=== PATIENT | female | born 1960 | race African-American/Black ===

== ENCOUNTER 2019-03-28 00:25 | Emergency (ER) | payer OTHER ==
[~2019-03-28] VITALS: Ht 165.1 cm; Wt 90.0 kg
[2019-03-28] MEDS ORDERED: KETOROLAC 30MG/ML VIAL IM ONE (03:45)
[2019-03-28 03:49] LABS: CLARITY URINE CLEAR (CLEAR); COLOR URINE YELLOW (YELLOW); KETONES URINE NEGATIVE (NEGATIVE); LEUKOCYTE ESTERASE URINE NEGATIVE (NEGATIVE); NITRITE URINE NEGATIVE (NEGATIVE); OCCULT BLOOD URINE TRACE (NEGATIVE); PH URINE 5.5 (4.5-8.0); PROTEIN URINE NEGATIVE (NEGATIVE); SPECIFIC GRAVITY URINE 1.024 (1.005-1.030)
[2019-03-29] MEDS ORDERED: IBUPROFEN 600MG TABLET PO STA (03:56)
[2019-03-29] MEDS ORDERED: INSULIN REGULAR (HUMULIN R) 300UNITS/3ML SUBCUT ONE (07:15)
[2019-03-29 16:30] VITALS: BP 156/81
== END 2019-03-29 17:35 | disposition home or self-care (01) ==
LOC: ER 00:25
DX: M54.41 Lumbago with sciatica, right side (principal); E11.9 Type 2 diabetes mellitus without complications; J44.9 Chronic obstructive pulmonary disease, unspecified; E78.00 Pure hypercholesterolemia, unspecified; I10 Essential (primary) hypertension; F17.200 Nicotine dependence, unspecified, uncomplicated; Z88.0 Allergy status to penicillin; Z59.0 Homelessness
CPT/HCPCS: 81003; 82962; 96372; 99283; J1815; J1885